=== PATIENT | female | born 2000 | race African-American/Black ===

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

== ENCOUNTER 2022-12-18 12:46 | Emergency (ER) | payer BC ==
[~2022-12-18] VITALS: Ht 162.6 cm; Wt 94.8 kg
[2022-12-18 13:22] VITALS: O2SAT 98
[2022-12-18] MEDS ORDERED: IPRATROPIUM BROM 0.5 MG/2.5ML INH SOL NEB ONE (13:30)
[2022-12-18] MEDS ORDERED: ALBUTEROL SULF 2.5 MG/0.5ML(0.5%) NEB SOLN NEB ONE (13:30)
[2022-12-18] MEDS ORDERED: AZIT500T66 PO (14:18)
[2022-12-18] MEDS ORDERED: ALBU108A5 IN (14:18)
[2022-12-18 14:24] VITALS: BP 118/85; PULSE 107; RESP 18; O2SAT 96
== END 2022-12-18 14:25 | disposition home or self-care (01) ==
LOC: ER 12:46
DX: J20.9 Acute bronchitis, unspecified (principal); R07.89 Other chest pain
CPT/HCPCS: 71046; 93005; 94640; 99283; J7644

== ENCOUNTER 2023-09-13 19:08 | Observation (INO) | payer BC ==
[~2023-09-13 19:08] MED LIST: ALBU108A5 IN; AZIT500T66 PO
[2023-09-13 20:55] LABS: Urine Bacteria FEW /hpf (None Seen); Urine Blood Negative /uL (Negative); Urine Clarity Clear (Clear); Urine Color Light-Yellow (Yellow); Urine Protein, UAD Negative (Negative); Urine Urobilinogen 3 mg/dL (Negative); Urine WBC 1 /hpf (0 - 5); Urine pH 6.5 (5.0-9.0)
[2023-09-13 21:09] LABS: Vaginal Bacteria Many; Vaginal Epithelial Cells Many; Vaginal Trichomonas Not Present
[2023-09-13 21:10] LABS: Vaginal Clue Cells Few
[2023-09-13] MEDS ORDERED: PREN-96 PO (21:25)
== END 2023-09-13 21:55 | disposition home or self-care (01) ==
LOC: LDRP 19:08
PROVIDERS: ADMIT Obstetrics & Gynecology; ATTEND Obstetrics & Gynecology
DX: O36.8120 Decreased fetal movements, second trimester, not applicable or unspecified (principal); O21.2 Late vomiting of pregnancy; O99.012 Anemia complicating pregnancy, second trimester; D57.1 Sickle-cell disease without crisis; O26.892 Other specified pregnancy related conditions, second trimester; N89.8 Other specified noninflammatory disorders of vagina; H53.8 Other visual disturbances; R51.9 Headache, unspecified; Z3A.23 23 weeks gestation of pregnancy
CPT/HCPCS: 59025; 76815; 81001; 81002; 87210; 94760; G0378

== ENCOUNTER 2023-09-13 21:58 | Emergency (ER) | payer BC, MEDICAID ==
[~2023-09-13] VITALS: Ht 162.6 cm; Wt 109.8 kg
[~2023-09-13 21:58] MED LIST changes: +PREN-96 PO
[2023-09-13 23:14] LABS: Basophils # (auto) 0.1 10 ^3/uL (0-0.2); Eosinophils # (auto) 0.3 10 ^3/uL (0-0.8); Hemoglobin 11.8 g/dL (12.2-16.2); Mean Corpuscular Hemoglobin 26.2 pg (28.0-32.0); Monocytes # (auto) 0.4 10 ^3/uL (0-1.3); Neutrophils # (auto) 5.6 10 ^3/uL (1.6-8.6)
[2023-09-13 23:15] LABS: Basophils % (auto) 0.9 % (0.0-2.0); Eosinophils % (auto) 3.3 % (0.0-7.0); Hematocrit 35.1 % (36.0-46.0); Lymphocytes # (auto) 1.4 10 ^3/uL (0.4-5.4); Lymphocytes % (auto) 18.3 % (10.0-50.0); Mean Corpuscular Hgb Conc. 33.5 g/dL (32.0-36.0); Mean Corpuscular Volume 78.3 fL (80.0-100.0); Neutrophils % (auto) 72.5 % (37.0-80.0); Nucleated Red Blood Cells % 0.8 %; Red Blood Cells 4.48 10^6/uL (4.0-5.20); Red Cell Distribution Width 22.2 % (11.8-14.3); White Blood Cell 7.7 10^3/uL (4.4-10.8)
[2023-09-13 23:19] LABS: Urine Bacteria FEW /hpf (None Seen); Urine Blood Negative /uL (Negative); Urine Clarity Clear (Clear); Urine Color Light-Yellow (Yellow); Urine Protein, UAD Negative (Negative); Urine Specific Gravity 1.008 (1.001-1.035); Urine Urobilinogen Normal (Negative); Urine WBC 1 /hpf (0 - 5)
[2023-09-13 23:27] LABS: Alanine Aminotransferase 14 U/L (7-40); Albumin 3.9 g/dL (3.2-4.8); Alkaline Phosphatase 55 U/L (46-116); Anion Gap 9 (5-15); Aspartate Aminotransferase 21 U/L (13-40); Bilirubin, Total 0.9 mg/dL (0.2-1.0); Calcium 9.5 mg/dL (8.5-10.1); Carbon Dioxide 18 mmol/L (20-30); Chloride 109 mmol/L (98-107); Glucose 74 mg/dL (74-106); Potassium 3.7 mmol/L (3.5-5.1); Sodium 136 mmol/L (136-145); Total Protein 6.7 g/dL (5.7-8.2)
[2023-09-13 23:30] LABS: Blood Urea Nitrogen < 5 mg/dL (9-23)
[2023-09-14 00:11] VITALS: BP 108/67; PULSE 86; RESP 18; TEMP 99.2; O2SAT 100
== END 2023-09-14 00:13 | disposition home or self-care (01) ==
LOC: ER 21:58
DX: R42 Dizziness and giddiness (principal); F41.9 Anxiety disorder, unspecified; Z34.02 Encounter for supervision of normal first pregnancy, second trimester; Z3A.23 23 weeks gestation of pregnancy; Z79.899 Other long term (current) drug therapy
CPT/HCPCS: 36415; 80053; 81001; 81025; 84484; 85025